=== PATIENT | female | born 1955 | race Caucasian/White ===

== ENCOUNTER 2017-09-23 09:32 | Outpatient (CLI) | payer OTHER | END 2017-09-23 09:33 | disposition home or self-care (01) | LOC: BICMAMMO 09:32 | PROVIDERS: ATTEND Nurse Practitioner Family | DX: Z12.31 Encounter for screening mammogram for malignant neoplasm of breast (principal); M81.0 Age-related osteoporosis without current pathological fracture; M85.89 Other specified disorders of bone density and structure, multiple sites; R92.1 Mammographic calcification found on diagnostic imaging of breast | CPT/HCPCS: 77063; 77067; 77080 ==

== ENCOUNTER 2020-02-02 08:33 | Outpatient (CLI) | payer MEDICARE ==
--- NOTE | 2020-02-02 12:18 | RAD ---
ABDOMEN 1 VIEW: Date: 02/02/2020 INDICATION: History of abdominal pain. COMPARISON: Prior abdominal radiograph dated 09/18/2010 from [facility]. FINDINGS: There is a 1.2 cm stone overlying the lower pole of the left kidney. There is a 2.2 and 3.3 mm calcul us overlying the left psoas shadow, possibly in the region of the left ureter. There is a 9.8 mm calc ification overlying the left sacral ala, possibly within the distal ureter. No suspicious calcificati on overlying the right renal shadow or suspected portion of the right renal collecting system. There is a left total hip replacement. Lung bases are clear. There is advanced disc degenerative facet oste oarthritic change at L3-4 through L5-S1. There is moderate degenerative change of both SI joints. IMPRESSION: 1. Left nephrolithiasis. 2. At least three separate calcifications in the expected course of the left ureter may reflect uret eral calculi. CT evaluation of the abdomen and pelvis without IV contrast is recommended for addition al characterization. POS: [place]
== END 2020-02-02 08:34 | disposition home or self-care (01) ==
LOC: RAD-FRANK 08:33
PROVIDERS: ATTEND Nurse Practitioner Family
DX: R10.9 Unspecified abdominal pain (principal); N20.0 Calculus of kidney; N28.89 Other specified disorders of kidney and ureter
CPT/HCPCS: 74018

== ENCOUNTER 2020-04-11 15:28 | Outpatient (CLI) | payer MEDICARE ==
--- NOTE | 2020-04-11 15:47 | RAD ---
CHEST TWO VIEW: 04/11/20 HISTORY: Cough. COMPARISON: None. FINDINGS: Lungs are clear. No pneumothorax or effusion. Cardiac silhouette and mediastinal contours are within normal limits. No acute osseous abnormality. IMPRESSION: No acute intrathoracic abnormality. POS: [facility]
== END 2020-04-11 15:29 | disposition home or self-care (01) ==
LOC: RAD-FRANK 15:28
PROVIDERS: ATTEND Nurse Practitioner Family
DX: R05 Cough (principal)
CPT/HCPCS: 71046

== ENCOUNTER 2020-05-30 07:54 | Outpatient (CLI) | payer MEDICARE, OTHER ==
--- NOTE | 2020-05-30 08:14 | RAD ---
PA AND LATERAL CHEST: Date: 05/30/2020 HISTORY: Dyspnea. COMPARISON: 04/11/2020 exam. FINDINGS: Heart size within normal limits. There are some atherosclerotic changes of the aorta. Lungs show some mild chronic change. No focal infiltrative process. Mild arthritic changes of the spine. IMPRESSION: Stable chest. POS: [facility]
== END 2020-05-30 07:55 | disposition home or self-care (01) ==
LOC: BICRAD 07:54
PROVIDERS: ATTEND Internal Medicine Critical Care Medicine
DX: R06.00 Dyspnea, unspecified (principal)
CPT/HCPCS: 71046

== ENCOUNTER 2021-07-04 22:55 | Inpatient (IN) | payer MEDICARE, OTHER ==
[2021-07-04] MEDS ORDERED: Morphine 4 MG/ML VIAL ONE (23:34)
[2021-07-04] MEDS ORDERED: Ondansetron PF 4 MG/2 ML Vial ONE (23:34)
[2021-07-05 00:31] LABS: #Basophils 0.1 thou/uL (0.0-0.2); #Eosinphils 0.1 thou/uL (0.0-0.7); #Monocytes 0.6 thou/uL (0.11-0.59); #Neutrophils 8.1 thou/uL (1.40-6.50); %Basophils 0.6 % (0.0-1.0); %Eosinophils 1.3 % (0.0-10.0); %Lymphocytes 18.5 % (21.0-51.0); %Monocytes 5.7 % (0.0-10.0); %Neutrophils 73.9 % (42.0-75.0); Mean Corpuscular HGB CONC 32.2 g/dL (32.0-36.0); Mean Corpuscular Hemoglobin 28.3 pg (27.0-31.0); Mean Corpuscular Volume 87.7 fL (78.0-98.0); Platelet Count 260 thou/uL (130-400); RBC Distribution Width 13.8 % (11.5-14.5); Red Blood Cell (RBC) Count 4.23 mill/uL (4.20-5.40)
[2021-07-05 00:41] LABS: INR-International Normal Ratio 1.1; Prothrombin Time 14.4 sec (12.0-14.7)
[2021-07-05 00:42] LABS: PTT 25.2 sec (22.9-36.1)
[2021-07-05 01:12] LABS: ALT (SGPT) 20 U/L (8-55); AST (SGOT) 21 U/L (5-34); Albumin 3.6 g/dL (3.4-4.8); Alkaline Phosphatase 61 U/L (40-110); Anion Gap 11 mmol/L (10-20); BUN (Urea Nitrogen) 18 mg/dL (9.8-20.1); Bilirubin, Total 0.3 mg/dL (0.2-1.2); Calc. Creatinine Clearance 0 mL/min (70-130); Calcium 8.5 mg/dL (7.8-10.44); Carbon Dioxide 23 mmol/L (23-31); Chloride 111 mmol/L (98-107); Globulin 2.3 g/dL (2.4-3.5); Glucose 104 mg/dL (80-115); Potassium 4.2 mmol/L (3.5-5.1); Protein, Total 5.9 g/dL (5.8-8.1); Sodium 141 mmol/L (136-145)
[2021-07-05] MEDS ORDERED: traMADol HCl 50 MG TAB PO PRN ×2 (02:29)
[2021-07-05] MEDS ORDERED: hydrALAZINE 20 MG/ML VIAL SLOW IVP PRN ×2 (02:29→02:33)
[2021-07-05] MEDS ORDERED: Cyclobenzaprine 10 MG TAB PO PRN (02:33)
[2021-07-05] MEDS ORDERED: Ibuprofen 200 MG TAB PO PRN (02:36)
[2021-07-05] MEDS ORDERED: Acetaminophen 500 MG TAB PO PRN (02:39)
[2021-07-05 03:50] LABS: SARS-CoV-2 NAA Rapid Test Not Detected (NotDetected)
[2021-07-05] MEDS ORDERED: Morphine 4 MG/ML VIAL ONE ×2 (06:09→08:55)
[2021-07-05] MEDS ORDERED: Acetaminophen 500 MG TAB ONE (06:09)
[2021-07-05] MEDS: Morphine 4 MG/ML VIAL SLOW IVP PRN ×2 (06:14→17:47)
[2021-07-05] MEDS ORDERED: Cyclobenzaprine 10 MG TAB ONE (06:23)
[2021-07-05] MEDS ORDERED: traMADol HCl 50 MG TAB ONE (08:55)
[2021-07-05] MEDS: Senokot S 8.6-50 MG TAB PO SCH ×2 (10:14→20:25)
[2021-07-05] MEDS: Polyethylene Glycol 3350 17 GM Packet PO SCH (10:14)
[2021-07-05] MEDS ORDERED: Famotidine 20 MG TAB ONE (11:19)
[2021-07-05] MEDS: Famotidine 20 MG TAB PO SCH ×2 (11:32→20:25)
[2021-07-05] MEDS ORDERED: ceFAZolin 2 GM/Dextrose 50 ML 2 GM in Premix Bag 1 BAG IVPB SCH (12:00)
[2021-07-05] MEDS ORDERED: CEFAZOLIN 2 GM, Admixture Fee 1 EACH in Sodium Chloride 0.9% 100 ML IVPB SCH (12:15)
[2021-07-05 13:48] VITALS: BMI 22.3
[2021-07-05] MEDS: Acetaminophen/Codeine 30-300mg Tablet PO SCH (17:29)
[2021-07-05 22:36] LABS: Bacteria/HPF None Seen HPF (None Seen); Bilirubin Negative (Negative); Blood, Urine Negative (Negative); Clarity Clear (Clear); Glucose, Urine (Dipstick) Normal (Negative); Ketone, Urine Negative (Negative); Leukocyte Negative Leu/uL (Negative); Nitrite Negative (Negative); Protein, Urine (Dipstick) Negative (Neg-Trace); RBC/HPF 0-3 HPF (0-3); Specific Gravity, Urine 1.012 (1.002-1.036); Squamous Epithelial 0-3 HPF (0-3); Urobilinogen Normal mg/dL (Less than 2); WBC/HPF 0-3 HPF (0-3); pH, Urine 7.5 (5.0-9.0)
[2021-07-05 22:38] LABS: Urine Culture Reflex No No
[2021-07-06] MEDS: Acetaminophen/Codeine 30-300mg Tablet PO SCH ×5 (00:06→23:33)
[2021-07-06 05:46] LABS: #Basophils 0.1 thou/uL (0.0-0.2); #Eosinphils 0.1 thou/uL (0.0-0.7); #Lymphocytes 1.6 thou/uL (1.20-3.40); #Monocytes 0.5 thou/uL (0.11-0.59); #Neutrophils 3.7 thou/uL (1.40-6.50); %Basophils 1.1 % (0.0-1.0); %Eosinophils 2.2 % (0.0-10.0); %Neutrophils 61.8 % (42.0-75.0); Hemoglobin 12.5 g/dL (12.0-16.0); Mean Corpuscular HGB CONC 31.6 g/dL (32.0-36.0); Mean Corpuscular Hemoglobin 28.3 pg (27.0-31.0); Mean Corpuscular Volume 89.6 fL (78.0-98.0); Mean Platelet Volume 7.3 fL (7.4-10.4); Platelet Count 220 thou/uL (130-400); RBC Distribution Width 13.5 % (11.5-14.5); Red Blood Cell (RBC) Count 4.43 mill/uL (4.20-5.40); White Blood Cell (WBC) Count 5.9 thou/uL (4.8-10.8)
[2021-07-06 06:04] LABS: Anion Gap 12 mmol/L (10-20); BUN (Urea Nitrogen) 14 mg/dL (9.8-20.1); Calc. Creatinine Clearance 67 mL/min (70-130); Calcium 8.6 mg/dL (7.8-10.44); Carbon Dioxide 23 mmol/L (23-31); Chloride 107 mmol/L (98-107); Glucose 79 mg/dL (80-115); Magnesium 2.1 mg/dL (1.6-2.6); Phosphorus 4.4 mg/dL (2.3-4.7); Potassium 3.9 mmol/L (3.5-5.1); Sodium 138 mmol/L (136-145)
[2021-07-06] MEDS ORDERED: ceFAZolin (BATCH) 2 GM/100 ML BAG ONE (10:26)
[2021-07-06] MEDS ORDERED: Fentanyl 100 MCG/2 ML VIAL ONE ×3 (10:31→12:20)
[2021-07-06] MEDS ORDERED: Phenylephrine 10 MG/ML VIAL ONE (10:31)
[2021-07-06] MEDS ORDERED: Lidocaine 2% Jelly 5 ML TUBE ONE (10:31)
[2021-07-06] MEDS ORDERED: Rocuronium Bromide 10 MG/ML (10ML VIAL) ONE (10:42)
[2021-07-06] MEDS ORDERED: PROPOFOL 200 MG/20 ML VIAL ONE (10:42)
[2021-07-06] MEDS ORDERED: Lidocaine 1% PF 5 ML VIAL ONE (10:42)
[2021-07-06] MEDS ORDERED: Dexamethasone 20 MG/5 ML VIAL ONE (10:42)
[2021-07-06] MEDS ORDERED: Ondansetron PF 4 MG/2 ML Vial ONE (10:42)
[2021-07-06] MEDS ORDERED: ceFAZolin 2 GM/Dextrose 50 ML 2 GM in Premix Bag 1 BAG IVPB SCH (10:45)
[2021-07-06] MEDS ORDERED: SUGAMMADEX SODIUM 200 MG/2 ML VIAL ONE (11:10)
[2021-07-06] MEDS ORDERED: Promethazine HCl 25 MG/ML VIAL IM PRN (11:30)
[2021-07-06] MEDS ORDERED: Ondansetron HCl/PF 4 MG/2 ML Vial IVP PRN (11:30)
[2021-07-06] MEDS ORDERED: Promethazine HCl 25 MG/ML VIAL IVPB PRN (11:30)
[2021-07-06] MEDS: Ondansetron PF 4 MG/2 ML Vial IVP PRN (13:03)
[2021-07-06] MEDS: Polyethylene Glycol 3350 17 GM Packet PO SCH (15:41)
[2021-07-06] MEDS: Famotidine 20 MG TAB PO SCH ×2 (15:41→20:32)
[2021-07-06] MEDS: Senokot S 8.6-50 MG TAB PO SCH ×2 (15:41→20:32)
[2021-07-06] MEDS ORDERED: Hydrocortisone Sod Succ/PF 100 mg/2 ml Vial IVP SCH (18:00)
[2021-07-06] MEDS: Hydrocortisone Sod Succ/PF 100 mg/2 ml Vial IVP SCH (21:30)
[2021-07-07] MEDS: Acetaminophen/Codeine 30-300mg Tablet PO SCH ×4 (05:02→23:45)
[2021-07-07] MEDS: Hydrocortisone Sod Succ/PF 100 mg/2 ml Vial IVP SCH ×3 (05:04→21:53)
[2021-07-07 05:28] LABS: #Lymphocytes 0.7 thou/uL (1.20-3.40); #Monocytes 0.5 thou/uL (0.11-0.59); %Basophils 0.2 % (0.0-1.0); %Lymphocytes 8.9 % (21.0-51.0); %Monocytes 5.8 % (0.0-10.0); %Neutrophils 85.1 % (42.0-75.0); Hemoglobin 12.2 g/dL (12.0-16.0); Mean Corpuscular HGB CONC 31.2 g/dL (32.0-36.0); Mean Corpuscular Volume 89.6 fL (78.0-98.0); Mean Platelet Volume 7.3 fL (7.4-10.4); Platelet Count 236 thou/uL (130-400); RBC Distribution Width 13.2 % (11.5-14.5); Red Blood Cell (RBC) Count 4.35 mill/uL (4.20-5.40); White Blood Cell (WBC) Count 8.2 thou/uL (4.8-10.8)
[2021-07-07] MEDS: Polyethylene Glycol 3350 17 GM Packet PO SCH (07:56)
[2021-07-07] MEDS: Senokot S 8.6-50 MG TAB PO SCH ×2 (07:56→20:21)
[2021-07-07] MEDS: Famotidine 20 MG TAB PO SCH ×2 (07:56→20:21)
[2021-07-07] MEDS ORDERED: Ketorolac Tromethamine 30 MG/ML VIAL IVP SCH (08:00)
[2021-07-07] MEDS ORDERED: Aspirin 81 mg Enteric Coated Tablet PO SCH (09:00)
[2021-07-07] MEDS ORDERED: Acetaminophen/Codeine 30-300mg Tablet PO SCH (12:30)
[2021-07-07] MEDS: Ondansetron PF 4 MG/2 ML Vial IVP PRN (12:52)
[2021-07-07] MEDS: Ibuprofen 200 MG TAB PO SCH ×2 (15:30→21:53)
[2021-07-08 04:42] VITALS: TEMP 97.7
[2021-07-08] MEDS: Hydrocortisone Sod Succ/PF 100 mg/2 ml Vial IVP SCH (06:00)
[2021-07-08] MEDS: Acetaminophen/Codeine 30-300mg Tablet PO SCH ×2 (06:01→11:20)
[2021-07-08] MEDS: Ibuprofen 200 MG TAB PO SCH (06:02)
[2021-07-08] MEDS: Famotidine 20 MG TAB PO SCH (08:15)
[2021-07-08] MEDS: Polyethylene Glycol 3350 17 GM Packet PO SCH (08:15)
[2021-07-08] MEDS: Senokot S 8.6-50 MG TAB PO SCH (08:15)
[2021-07-08] MEDS ORDERED: Non-Formulary Item 1 EACH (Rivaroxaban [Xarelto] 20 MG Tablet) PO SCH (09:00)
[2021-07-08] MEDS ORDERED: Rivaroxaban 10 MG TAB PO SCH (09:00)
[2021-07-08 13:07] VITALS: BP 123/67
== END 2021-07-08 12:45 | disposition home or self-care (01) | DRG 481 ==
LOC: ERS 22:55 → ERHOLD 07-05 02:34 → SJJU 07-05 12:55
PROVIDERS: ADMIT Orthopaedic Surgery; ATTEND Orthopaedic Surgery
PROC: 0QS604Z Reposition Right Upper Femur with Internal Fixation Device, Open Approach (ICD-10-PCS; principal; 2021-07-06)
DX: S72.141A Displaced intertrochanteric fracture of right femur, initial encounter for closed fracture (principal); D68.2 Hereditary deficiency of other clotting factors; Z20.822 Contact with and (suspected) exposure to COVID-19; W01.0XXA Fall on same level from slipping, tripping and stumbling without subsequent striking against object, initial encounter; E78.5 Hyperlipidemia, unspecified; I10 Essential (primary) hypertension; Z96.642 Presence of left artificial hip joint; I95.2 Hypotension due to drugs; T49.0X5A Adverse effect of local antifungal, anti-infective and anti-inflammatory drugs, initial encounter; Z90.710 Acquired absence of both cervix and uterus; Z79.899 Other long term (current) drug therapy; Z79.01 Long term (current) use of anticoagulants; Z28.311 Partially vaccinated for COVID-19
CPT/HCPCS: 36415; 70450; 71045; 72125; 72170; 72192; 76000; 80048; 80053; 81001; 82533; 83735; 84100; 85025; 85610; 85730; 93005; 96374; 96375; C1713; J0690; J1100; J1720; J1885; J2270; J2370; J2405; J2704; J3010; U0002